=== PATIENT | male | born 1965 | race Two or more races ===

== ENCOUNTER 2022-06-13 10:53 | Emergency (ER) | payer OTHER ==
[2022-06-13 10:57] VITALS: BP 119/77; PULSE 98; RESP 18; TEMP 98; BMI 32.3
[2022-06-13] MEDS ORDERED: ACETAMINOPHEN 1000 MG/100 ML BAG IVPB ONE (11:41)
[2022-06-13] MEDS ORDERED: ACETAMINOPHEN INJECTION 100 ML IVPB ONE (11:57)
[2022-06-13 12:07] LABS: BASO % 0.5 % (0-2.0); EOS % 2.9 % (0-4.5); HEMATOCRIT 42.2 % (35.4-49); HEMOGLOBIN 14.5 GM/dL (11.7-16.9); LYMPH % 26.3 % (8-40); MCH 31.5 pg (25.7-33.7); MCHC 34.4 g/dl (32.0-35.9); MEAN CELL VOLUME 91.5 fl (80-96); MEAN PLT VOLUME 8.1 fl (7.5-11.1); NEUT % 60.3 % (42.8-82.8); PLATELET COUNT 115 10^3/uL (134-434); RBC 4.62 M/mm3 (4.00-5.60); RDW 14.2 % (11.9-15.9); WHITE BLOOD COUNT 5.3 K/mm3 (4.0-10.0)
[2022-06-13 12:13] LABS: INR 1.12 (0.83-1.09); PROTHROMBIN TIME (PATIENT) 12.9 SEC (9.7-13.0)
[2022-06-13 12:16] LABS: ACTIVATED PTT 31.3 SECONDS (25.2-36.5)
[2022-06-13 12:32] LABS: ALBUMIN 4.1 g/dl (3.4-5.0); CALCIUM 8.7 mg/dL (8.5-10.1)
[2022-06-13 12:33] LABS: BLOOD UREA NITROGEN 18.9 mg/dL (7-18)
[2022-06-13 12:36] LABS: CREATININE 1.2 mg/dL (0.55-1.3)
[2022-06-13 12:37] LABS: BILIRUBIN,TOTAL 0.6 mg/dL (0.2-1); TOT PROT 7.8 g/dl (6.4-8.2)
[2022-06-13 13:33] LABS: URINE APPEARANCE CLEAR; URINE BILIRUBIN NEGATIVE (NEGATIVE); URINE COLOR YELLOW; URINE GLUCOSE (UA) NEGATIVE (NEGATIVE); URINE KETONE NEGATIVE (NEGATIVE); URINE LEUK ESTERASE NEGATIVE (NEGATIVE); URINE NITRITE NEGATIVE (NEGATIVE); URINE PROTEIN NEGATIVE (NEGATIVE); URINE UROBILINOGEN 0.2 mg/dL (0.2-1.0)
== END 2022-06-13 16:56 | disposition home or self-care (01) ==
LOC: JER 10:53
PROC: 3E0333Z Introduction of Anti-inflammatory into Peripheral Vein, Percutaneous Approach (ICD-10-PCS; principal; 2022-06-13)
DX: K40.90 Unilateral inguinal hernia, without obstruction or gangrene, not specified as recurrent (principal)
CPT/HCPCS: 36415; 74177-TC; 80053; 81003; 85025; 85610; 85730; 86850; 86900; 86901; 87086; 99285-25; C1887; Q9967

== ENCOUNTER 2022-06-21 11:07 | Emergency (ER) | payer OTHER ==
[2022-06-21 11:24] VITALS: BP 130/80; PULSE 98; RESP 16; TEMP 98; BMI 32.3
[2022-06-21] MEDS ORDERED: KETOROLAC TROMETHAMINE 30 MG/1 ML VIAL IM ONE (11:49)
[2022-06-21] MEDS ORDERED: KETOROLAC TROMETHAMINE 30 MG/1 ML VIAL ONE (11:53)
== END 2022-06-21 12:01 | disposition home or self-care (01) ==
LOC: JERFT 11:07 → JER 11:07 → JERFT 12:01
PROC: 3E0233Z Introduction of Anti-inflammatory into Muscle, Percutaneous Approach (ICD-10-PCS; principal; 2022-06-21)
DX: K40.30 Unilateral inguinal hernia, with obstruction, without gangrene, not specified as recurrent (principal)
CPT/HCPCS: 99284-25